=== PATIENT | female | born 1975 | race Caucasian/White ===

== ENCOUNTER 2018-12-01 14:30 | Emergency (ER) | payer BC ==
[2018-12-01 14:41] VITALS: BP 118/58; PULSE 102; TEMP 98.8; BMI 23.9
[2018-12-01] MEDS ORDERED: LIDOCAINE 5% TOPICAL PATCH TP ONE (15:02)
[2018-12-01] MEDS ORDERED: KETOROLAC TROMETHAMINE 30 MG/1 ML VIAL IM ONE (15:02)
[2018-12-01] MEDS ORDERED: CYCLOBENZAPRINE HCL 10 MG TABLET (FP) PO ONE (15:02)
[2018-12-01] MEDS ORDERED: predniSONE 20 MG TABLET (UD) PO ONE (15:16)
--- NOTE | 2018-12-01 15:17 | PDOC ---
Attending Attestation - Resident Resident Name: Nessa Last - ED Attending Attestation I have performed the following: I have examined & evaluated the patient, The case was reviewed & discussed with the resident, I agree w/resident's findings & plan, Exceptions are as noted - HPI HPI: 12/01/18 15:55 43 year old female with past medical history of L5 disc disease, sciatica p/w sciatica. Pt reports that 8 years ago, she had intermittent sciatica going down the right posterior leg. Pt noted several days of these exact symptoms. Worsened with flexion and laying down. Better with lying on her stomach. No recent injuries. States alleve helped minimally. Denies urinary or bowel incontinence/retension. Denies saddle anesthesia. - Physicial Exam PE: 12/01/18 15:59 GENERAL: Awake, alert, and fully oriented, in no acute distress HEAD: No signs of trauma EYES: EOMI, sclera anicteric, conjunctiva clear ENT: Auricles normal inspection, hearing grossly normal, nares patent, NECK: Normal ROM, supple BACK: TTP ~L5 region, no step offs appreciated. SLR positive 30 degrees RLE. Sensation intact throughout. EXTREMITIES: Normal range of motion, no edema. No clubbing or cyanosis. No cords, erythema, or tenderness NEUROLOGICAL: Cranial nerves II through XII grossly intact. Normal speech, normal gait SKIN: Warm, Dry, normal turgor, no rashes or lesions noted. - Medical Decision Making 12/01/18 16:03 Vital Signs Temp Pulse Resp BP Pulse Ox 98.8 F 102 H 18 118/58 L 98 12/01/18 14:31 12/01/18 14:31 12/01/18 14:31 12/01/18 14:31 12/01/18 14:31 These findings are consistent with sciatica. No signs of cord compression. Supportive care and pain medications. Will write a prescription for naproxen, lidoderm patch and flexeril. Rescue tramadol. Initiate oral prednisone. Follow up with spine surgeon. Return precautions given. *DC/Admit/Observation/Transfer Diagnosis at time of Disposition: Sciatica Qualifiers: Laterality: right Qualified Code(s): M54.31 - Sciatica, right side - Discharge Dispostion Disposition: HOME Condition at time of disposition: Stable Decision to Admit order: No - Prescriptions Prescriptions: Lidocaine 5% Patch [Lidoderm Patch -] 1 patch TP DAILY PRN #7 patch PRN Reason: Back Pain Naproxen 500 mg PO BID PRN #20 tablet PRN Reason: Pain Pantoprazole Sodium [Protonix] 40 mg PO DAILY #30 tablet. Prednisone [Deltasone] 40 mg PO DAILY #8 tablet Tramadol HCl 50 mg PO Q6H PRN #15 tablet MDD 4 PRN Reason: Back Pain - Referrals Referrals: Noah Huffman MD, [facility] [Staff Physician] - - Patient Instructions Printed Discharge Instructions: DI for Back Pain With Sciatica Additional Instructions: Please take the medications as prescribed as needed for symptom control. These medications may make you drowsy so please do not drink or drive. If you have numbness, weakness, or uncontrollable back pain, please return to the ER. Please make an appointment with a spine surgeon. Call to schedule an appointment. - Post Discharge Activity
[2018-12-01] MEDS ORDERED: NAPROXEN 500 MG TABLET (FP) PO ONE (15:19)
[2018-12-01] MEDS ORDERED: NAPROXEN 500 MG TABLET (FP) ONE (15:20)
[2018-12-01] MEDS ORDERED: predniSONE 20 MG TABLET (UD) ONE (15:20)
[2018-12-01] MEDS ORDERED: LIDOCAINE 5% TOPICAL PATCH ONE (15:21)
[2018-12-01] MEDS ORDERED: LIDOCAINE PATCH REMOVAL MC SCH (22:00)
--- NOTE | 2018-12-03 23:46 | PDOC ---
History of Present Illness - General Chief Complaint: Pain Stated Complaint: R LEG PAIN Time Seen by Provider: 12/01/18 14:41 - History of Present Illness Initial Comments: 43yo F with PMH of L5-S1 disc disease complaining of lower back pain x 1 day. Patient reports that she has had this pain before. Eight years prior, she had sciatica extending down the back of her right leg which was followed by her neurologist. A furniture painter injected her back and the pain resolved. Since that time she has intermittently felt twinges of pain, but not as severe and as consistent as today. Denies recent injury or fall. Certain positions make her pain worse, especially sitting in the car. She has taken alleve at home with minimal relief. Denies saddle anesthesia, pain shooting down her legs, or urinary/fecal incontinence. No fever, chills, or night sweats Past History - Past Medical History Allergies/Adverse Reactions: Allergies Allergy/AdvReac Type Severity Reaction Status Date / Time No Known Drug Allergies Allergy Verified 12/01/18 14:38 Home Medications: Ambulatory Orders Lidocaine 5% Patch [Lidoderm Patch -] 1 patch TP DAILY PRN #7 patch 12/01/18 Naproxen 500 mg PO BID PRN #20 tablet 12/01/18 Pantoprazole Sodium [Protonix] 40 mg PO DAILY #30 tablet. 12/01/18 Prednisone [Deltasone] 40 mg PO DAILY #8 tablet 12/01/18 Tramadol HCl 50 mg PO Q6H PRN #15 tablet MDD 4 12/01/18 Anemia: No Asthma: No Cancer: No Cardiac Disorders: No CVA: No COPD: No CHF: No Dementia: No Diabetes: No GI Disorders: No Disorders: No HTN: No Hypercholesterolemia: No Liver Disease: No Seizures: No Thyroid Disease: No - Surgical History Abdominal Surgery: No Appendectomy: No Cardiac Surgery: No Cholecystectomy: No Lung Surgery: No Neurologic Surgery: No Orthopedic Surgery: No - Suicide/Smoking/Psychosocial Hx Smoking History: Current every day smoker Have you smoked in the past 12 months: Yes Number of Cigarettes Smoked Daily: 7 Information on smoking cessation initiated: Yes 'Breaking Loose' booklet given: 03/22/14 Hx Alcohol Use: Yes (socially) Drug/Substance Use Hx: No Substance Use Type: Alcohol Hx Substance Use Treatment: No Review of Systems - Review of Systems Comments:: Constitutional: no fever, no chills HEENT: no throat pain, no dysphagia Cardiovascular: no chest pain, no palpitations Respiratory: no cough, no shortness of breath Gastrointestinal: no abdominal pain, no nausea Genitourinary: no dysuria, no frequency Musculoskeletal: +back pain, +leg pain Skin: no rash, no itching Neurologic: no headache, no dizziness *Physical Exam - Vital Signs Last Vital Signs Temp Pulse Resp BP Pulse Ox 98.8 F 102 H 18 118/58 L 98 12/01/18 14:31 12/01/18 14:31 12/01/18 14:31 12/01/18 14:31 12/01/18 14:31 - Physical Exam Comments: General: Awake, alert, and fully oriented, in no acute distress Head: No signs of trauma Eyes: EOMI, sclera anicteric ENT: Moist mucus membranes Neck: Normal ROM, supple Lungs: Lungs clear, Normal breath sounds Cardio: Regular rhythm, S1 and S2 present Abdomen: Soft, nontender. No guarding, no rebound, no masses Extremities: Normal range of motion, Distal pulses present SKIN: Warm, Dry, normal turgor Neurologic: Cranial nerves II through XII grossly intact. Normal speech Back: Tender to palpation in lumbar area, no step-offs/deformities/fluctuance; no overlying wound or lesion; positive straight leg test on the right Moderate Sedation - Procedure Monitoring Vital Signs: Procedure Monitoring Vital Signs Temperature 98.8 F 12/01/18 14:31 Pulse Rate 102 H 12/01/18 14:31 Respiratory Rate 18 12/01/18 14:31 Blood Pressure 118/58 L 12/01/18 14:31 O2 Sat by Pulse Oximetry (%) 98 12/01/18 14:31 ED Treatment Course - Medications Given in the ED: ED Medications Discontinued Medications Generic Name Dose Route Start Last Admin Trade Name Freq PRN Reason Stop Dose Admin Lidocaine 1 patch 12/01/18 15:02 12/01/18 15:25 Lidoderm Patch - TP 12/01/18 15:03 1 patch ONCE ONE Administration Naproxen 500 mg 12/01/18 15:19 12/01/18 15:26 Naprosyn - PO 12/01/18 15:20 500 mg ONCE ONE Administration Prednisone 40 mg 12/01/18 15:16 12/01/18 15:25 Deltasone - PO 12/01/18 15:17 40 mg ONCE ONE Administration Medical Decision Making - Medical Decision Making 43yo F with PMH of L5-S1 disc disease complaining of lower back pain x 1 day. DDX including but not limited to sciatica, spinal stenosis, radiculopathy, neuropathy Lidocaine patch, naprosyn, Protonix, prednisone sent to pharmacy by Dr. Cobos Presentation consistent with sciatica Patient will follow-up with her neurologist Discharged *DC/Admit/Observation/Transfer Diagnosis at time of Disposition: Sciatica Qualifiers: Laterality: right Qualified Code(s): M54.31 - Sciatica, right side - Discharge Dispostion Disposition: HOME Condition at time of disposition: Stable - Prescriptions Prescriptions: Lidocaine 5% Patch [Lidoderm Patch -] 1 patch TP DAILY PRN #7 patch PRN Reason: Back Pain Naproxen 500 mg PO BID PRN #20 tablet PRN Reason: Pain Pantoprazole Sodium [Protonix] 40 mg PO DAILY #30 tablet. Prednisone [Deltasone] 40 mg PO DAILY #8 tablet Tramadol HCl 50 mg PO Q6H PRN #15 tablet MDD 4 PRN Reason: Back Pain - Referrals Referrals: Noah Huffman MD, [facility] [Staff Physician] - - Patient Instructions Printed Discharge Instructions: DI for Back Pain With Sciatica Additional Instructions: Please take the medications as prescribed as needed for symptom control. These medications may make you drowsy so please do not drink or drive. If you have numbness, weakness, or uncontrollable back pain, please return to the ER. Please make an appointment with a spine surgeon. Call to schedule an appointment. - Post Discharge Activity
== END 2018-12-01 15:26 | disposition home or self-care (01) ==
LOC: FER 14:30
DX: M54.31 Sciatica, right side (principal)
CPT/HCPCS: 99282-25